=== PATIENT | female | born 1990 | race Caucasian/White ===

== ENCOUNTER 2021-09-16 16:07 | Emergency (ER) | payer OTHER ==
[~2021-09-16] VITALS: Ht 157.5 cm; Wt 61.5 kg
[2021-09-16 16:19] VITALS: BP 107/74
[2021-09-16] MEDS ORDERED: AMOX-494 MT (16:41)
[2021-09-16] MEDS ORDERED: CARB-274 EACH EAR (16:41)
== END 2021-09-16 17:21 | disposition home or self-care (01) ==
LOC: ER 16:07
DX: H66.91 Otitis media, unspecified, right ear (principal); H61.21 Impacted cerumen, right ear
CPT/HCPCS: 99283; Z7610